=== PATIENT | male | born 1935 | race Caucasian/White ===

== ENCOUNTER 2021-05-20 09:52 | Outpatient (REF) | payer MEDICARE, OTHER, SELFPAY ==
--- NOTE | ~2021-05-20 | CT_ITS ---
EXAMINATION: CT CHEST WITHOUT CONTRAST CLINICAL INFORMATION: Pulmonary nodule follow-up COMPARISON: CT chest 11/16/2019, 10/24/2018 TECHNIQUE: Multidetector volumetric CT imaging of the chest was done. Axial MIP volume rendering provided. Sagittal and coronal reformatted images were obtained. This CT examination was performed using dose optimization techniques as appropriate, variously including the following: *Automated exposure control *Adjustment of mA and/or kV according to patient size (this includes techniques or standardized protocols for targeted exams where dose is matched to indication/reason for exam; i.e. extremities or head) *Use of iterative reconstruction technique DLP: 224 mGy-cm FINDINGS: CHEST WALL/AXILLA: Few prominent right axillary nodes not pathologically enlarged and appear stable from 2020 measuring up to 0.7 cm short axis diameter, 3:12. LUNGS: Stable biapical pleural parenchymal scarring. Multiple solid pulmonary nodules measuring up to 1.6 cm in the right upper lobe, 7:186 are unchanged from 2019 although the largest nodule in retrospect was difficult to discern as it overlaps with multiple branching vessels partially obscuring evaluation. For example a stable 7 mm solid left lower lobe pulmonary nodule, 7:398, and a 7 mm solid left lower lobe pulmonary nodule, 7:251. MEDIASTINUM: Heart is normal in size. No mediastinal lymphadenopathy. Lack of intravenous contrast limits assessment for hilar adenopathy. Coronary artery calcification. PLEURA: There is no pleural effusion. UPPER ABDOMEN: Fluid attenuation partially imaged likely benign left renal cyst. Small hiatal hernia. OSSEOUS STRUCTURES: Unremarkable. CT/CT chest wo con IMPRESSION: Multiple solid pulmonary nodules measuring up to 1.6 cm demonstrate long-term stability from 2019, however given the size of the largest pulmonary nodule a PET/CT is recommended for further characterization. The findings and recommendations were discussed with Zoe Devlin RN at the office of Harrison Knight MD by telephone at 05/21/2021 3:36 PM and it was ascertained that the content and urgency of the report was understood at the time of direct communication.
== END 2021-05-20 09:53 | disposition home or self-care (01) ==
LOC: HO.CT 09:52
PROVIDERS: PCP Nurse Practitioner Family; Visit Provider Internal Medicine
DX: Z87.898 Personal history of other specified conditions (principal)
CPT/HCPCS: 71250